=== PATIENT | female | born 1980 | race Two or more races ===

== ENCOUNTER 2023-09-21 23:54 | Emergency (ER) | payer MEDICAID, OTHER ==
[~2023-09-21] VITALS: Ht 162.6 cm; Wt 108.9 kg
[2023-09-22 00:53] VITALS: BP 139/75; TEMP 98.2; O2SAT 98
== END 2023-09-22 00:54 | disposition home or self-care (01) ==
LOC: ER 23:56
DX: F10.129 Alcohol abuse with intoxication, unspecified (principal); F41.9 Anxiety disorder, unspecified; Y90.9 Presence of alcohol in blood, level not specified
CPT/HCPCS: 71045-TC